=== PATIENT | male | born 2000 ===

== ENCOUNTER 2021-05-29 22:00 | Outpatient (REF) | payer MEDICAID, SELFPAY ==
[2021-05-29 22:34] LABS: Abs Immature Grans 0.04 10^3/uL (0.0-0.06); Absolute Basophil Count 0.07 10^3/uL (0.0-0.2); Absolute Eosinophil Count 0.46 10^3/uL (0.0-0.7); Absolute Lymphocyte Count 2.44 10^3/uL (1.2-3.4); Absolute Monocyte Count 0.88 10^3/uL (0.1-0.8); Absolute Neutrophil Count 4.73 10^3/uL (1.2-6.7); Basophils % 0.8; Eosinophils % 5.3; HCT 43.4 % (40.0-50.0); HGB 13.8 g/dL (13.5-17.5); Immature Grans % 0.5; Lymphocytes % 28.3; MCH 28.2 pg (27.0-33.0); MCHC 31.8 % (32.0-36.0); MCV 88.6 fL (80-95); MPV 10.9 fL (8.0-11.0); Monocytes % 10.2; Neutrophils % 54.9; Nucleated RBC 0 %; Platelet Count 246 10^3/uL (130-400); RDW 12.9 % (11.8-14.1); RDW-SD 42.1 fL; WBC 8.62 10^3/uL (4.4-10.8)
[2021-05-29 22:44] LABS: ALT 43 U/L (16-63); AST 17 U/L (15-37); Alkaline Phosphatase 62 U/L (46-116); Anion Gap 8.8 mmol/L (3-11); BUN 7 mg/dL (7-18); Bilirubin, Total 0.2 mg/dL (0.2-1.0); CO2 30.2 mmol/L (21.0-32.0); CREATININE 0.8 mg/dL (0.70-1.30); Calcium 8.5 mg/dL (8.5-10.1); Calculated LDL 68 mg/dL (<100); Chloride 106 mmol/L (98-107); Cholesterol 151 mg/dL (<200); Glucose 82 mg/dL (74-106); HDL Cholesterol 30 mg/dL (40-60); Potassium 3.8 mmol/L (3.5-5.1); Sodium 145 mmol/L (136-145); Total Protein 7.3 g/dL (6.4-8.2); Triglyceride 269 mg/dL (<150)
[2021-05-29 22:55] LABS: Hemoglobin A1C 5.3 % (<5.7)
== END 2021-05-29 22:01 | disposition home or self-care (01) ==
LOC: NCHCN 22:00
PROVIDERS: Visit Provider Nurse Practitioner Family
DX: F41.9 Anxiety disorder, unspecified (principal); Z00.00 Encounter for general adult medical examination without abnormal findings
CPT/HCPCS: 80053; 80061; 83036; 85025

== ENCOUNTER 2022-06-05 18:58 | Outpatient (REF) | payer MEDICAID, SELFPAY ==
[2022-06-05 15:00] LABS: Abs Immature Grans 0.08 10^3/uL (0.0-0.06); Absolute Basophil Count 0.07 10^3/uL (0.0-0.2); Absolute Eosinophil Count 0.22 10^3/uL (0.0-0.7); Absolute Monocyte Count 0.67 10^3/uL (0.1-0.8); Absolute Neutrophil Count 4.45 10^3/uL (1.2-6.7); Basophils % 0.9; Eosinophils % 2.9; HCT 42.1 % (40.0-50.0); HGB 13.5 g/dL (13.5-17.5); Immature Grans % 1.1; Lymphocytes % 26.7; MCH 28.4 pg (27.0-33.0); MCHC 32.1 % (32.0-36.0); MCV 89 fL (80-95); MPV 10.6 fL (8.0-11.0); Monocytes % 8.9; Neutrophils % 59.5; Platelet Count 235 10^3/uL (130-400); RBC 4.75 10^6/uL (4.36-5.78); RDW-SD 42.6 fL; WBC 7.49 10^3/uL (4.4-10.8)
[2022-06-05 15:43] LABS: ALT 35 U/L (16-63); AST 19 U/L (15-37); Albumin 3.9 g/dL (3.4-5.0); Alkaline Phosphatase 54 U/L (46-116); Anion Gap 7.9 mmol/L (3-11); BUN 12 mg/dL (7-18); Bilirubin, Total 0.2 mg/dL (0.2-1.0); CO2 29.1 mmol/L (21.0-32.0); CREATININE 0.8 mg/dL (0.70-1.30); Calcium 8.6 mg/dL (8.5-10.1); Chloride 104 mmol/L (98-107); Estimated GFR 127.53 (mL/min/1.73m2); Glucose 101 mg/dL (74-106); Potassium 4.1 mmol/L (3.5-5.1); Sodium 141 mmol/L (136-145); TSH (W/Ref FT4) 0.92 uIU/mL (0.36-3.74); Total Protein 7.6 g/dL (6.4-8.2); Vitamin B12 412 pg/mL (193-986); Vitamin D 25 Total 16.1 ng/mL (30-100)
== END 2022-06-05 18:59 | disposition home or self-care (01) ==
LOC: NCHCN 18:58
PROVIDERS: PCP Family Medicine; Visit Provider Nurse Practitioner Family
DX: F41.8 Other specified anxiety disorders (principal)
CPT/HCPCS: 80053; 82306; 82607; 84443; 85025

== ENCOUNTER 2022-08-23 17:08 | Outpatient (REF) | payer MEDICAID, SELFPAY ==
[2022-08-23 15:43] LABS: Vitamin D 25 Total 39.8 ng/mL (30-100)
== END 2022-08-23 17:09 | disposition home or self-care (01) ==
LOC: NCHCN 17:08
PROVIDERS: PCP Family Medicine; Visit Provider Nurse Practitioner Family
DX: E55.9 Vitamin D deficiency, unspecified (principal); Z02.89 Encounter for other administrative examinations
CPT/HCPCS: 82306